=== PATIENT | male | born 2000 | race Caucasian/White ===

== ENCOUNTER 2022-05-04 06:23 | Day surgery (SDC) | payer MEDICAID ==
[~2022-05-04] VITALS: Ht 182.9 cm; Wt 67.3 kg
[2022-05-04] MEDS ORDERED: ULTRAM ER100 MG PO (07:21)
[2022-05-04] MEDS ORDERED: MIRALAX PA17 GM/Dose PO (07:22)
[2022-05-04] MEDS ORDERED: HYCET SOLN PO (08:38)
[2022-05-04 11:15] VITALS: BP 119/76; PULSE 86; TEMP 97.7
[2022-05-04 11:30] VITALS: BP 129/73; PULSE 87
[2022-05-04 11:45] VITALS: BP 131/72; PULSE 85
[2022-05-04 12:00] VITALS: BP 114/62; PULSE 95
[2022-05-04 13:42] VITALS: BP 125/76; PULSE 75; TEMP 98.3
--- NOTE | 2022-05-04 14:05 | NUR ---
1111 - [id number] PT TO [facility] FROM PACU S/P RIGHT INGUINAL HERNIA REPAIR, ROBOT ASSISTED PLACED ON MONITOR, VSS ON RA RECEIVED REPORT AND ASSUMED CARE OF PT FROM NABEEL VALENTINO MOM BEDSIDE REPORTS MILD GENERALIZED ABDOMINAL SORENESS, WARM BLANKET ABD PAD REFRESHED, DECLINING NEED FOR FURTHER INTERVENTION. PROVIDED JUICE AND MUFFIN PER REQUEST, TOLERATING WELL, WITHOUT COMPLAINT. PT HAS REMAINED A&O, NAD, VSS ON RA, TOLERATING PO, IS WITHOUT SIGNIFICANT COMPLAINT, WITH STEADY GAIT THRU OUT [facility] STAY IV D/C'D. D/C INSTRUCTIONS, FOLLOW UP VISIT REVIEWED AND HANDED TO PT. ALL QUESTIONS AND CONCERNS ADDRESSED TO PT SATISFACTION. TAKEN TO EXIT VIA W/C WITH ALL BELONGINGS AND PAPERWORK IN HAND, ASSISTED INTO PASSENGER SEAT OF POV. MOM TO DRIVE HOME.
== END 2022-05-04 12:15 | disposition home or self-care (01) ==
LOC: SDCO 06:23
DX: K40.90 Unilateral inguinal hernia, without obstruction or gangrene, not specified as recurrent (principal); Z28.310 Unvaccinated for COVID-19; Z28.9 Immunization not carried out for unspecified reason
CPT/HCPCS: C1781; J0690; J1100; J1885; J2175; J2405; J2704; J3010; J7120